=== PATIENT | female | born 1990 | race Two or more races ===

== ENCOUNTER 2018-08-25 08:44 | Emergency (ER) | payer OTHER ==
[2018-08-25 08:48] VITALS: BP 121/77; PULSE 87; TEMP 98.6; BMI 31.2
[2018-08-25] MEDS ORDERED: IBUPROFEN 400 MG TABLET (FP) PO ONE ×2 (09:22→09:26)
[2018-08-25] MEDS ORDERED: DEXAMETHASONE LIQUID 0.5 MG/5 ML 240 ML BULK BOTTLE PO ONE (09:22)
[2018-08-25] MEDS ORDERED: DEXAMETHASONE SOD PHOSPHATE 10 MG/1 ML VIAL ONE (09:26)
[2018-08-25] MEDS ORDERED: PENICILLIN G BENZATHINE 1,200,000 UNIT/2 ML PFS IM ONE (10:09)
[2018-08-25] MEDS ORDERED: PENICILLIN G BENZATHINE 2,400,000 UNIT/4 ML PFS ONE (10:22)
--- NOTE | 2018-08-25 10:34 | PDOC ---
History of Present Illness - General Chief Complaint: Sore Throat Stated Complaint: DIF BREATHING Time Seen by Provider: 08/25/18 09:15 History Source: Patient Exam Limitations: No Limitations Past History - Past Medical History Allergies/Adverse Reactions: Allergies Allergy/AdvReac Type Severity Reaction Status Date / Time No Known Allergies Allergy Verified 08/25/18 08:47 Home Medications: Ambulatory Orders NK [No Known Home Medication] 04/06/17 Asthma: Yes COPD: No - Suicide/Smoking/Psychosocial Hx Smoking History: Current some day smoker Number of Cigarettes Smoked Daily: 1 Information on smoking cessation initiated: No Hx Alcohol Use: Yes (OCCASIONALLY) Drug/Substance Use Hx: No *Physical Exam - Vital Signs Last Vital Signs Temp Pulse Resp BP Pulse Ox 98.6 F 87 18 121/77 99 08/25/18 08:46 08/25/18 08:46 08/25/18 08:46 08/25/18 08:46 08/25/18 08:46 - Physical Exam General Appearance: No: Apparent Distress HEENT: positive: TMs Normal, Pharyngeal Erythema, Tonsillar Exudate. negative: Muffled/Hoarse voice Respiratory/Chest: positive: Lungs Clear, Normal Breath Sounds. negative: Respiratory Distress Cardiovascular: positive: Regular Rhythm, Regular Rate, S1, S2. negative: Murmur Gastrointestinal/Abdominal: positive: Normal Bowel Sounds, Soft. negative: Tender, Distended, Guarding, Rebound Integumentary: positive: Normal Color. negative: Rash Neurologic: positive: Alert, Normal Mood/Affect Moderate Sedation - Procedure Monitoring Vital Signs: Procedure Monitoring Vital Signs Temperature 98.6 F 08/25/18 08:46 Pulse Rate 87 08/25/18 08:46 Respiratory Rate 18 08/25/18 08:46 Blood Pressure 121/77 08/25/18 08:46 O2 Sat by Pulse Oximetry (%) 99 08/25/18 08:46 ED Treatment Course - Medications Given in the ED: ED Medications Discontinued Medications Generic Name Dose Route Start Last Admin Trade Name Freq PRN Reason Stop Dose Admin Dexamethasone 10 mg 08/25/18 09:22 08/25/18 09:28 Decadron Liquid - PO 08/25/18 09:23 10 mg ONCE ONE Administration Ibuprofen 800 mg 08/25/18 09:22 08/25/18 09:29 Motrin - PO 08/25/18 09:23 800 mg ONCE ONE Administration Penicillin G Benzathine 1,200,000 unit 08/25/18 10:09 08/25/18 10:25 Bicillin L-A - IM 08/25/18 10:10 1,200,000 unit ONCE ONE Administration Medical Decision Making - Medical Decision Making 28 y/o F with no sig pmh presents with sore throat since yesterday and pain with swallowing. Mentions she has had a ?abscess last year, which was drained, and the pain similar to her prior throat infection. Mentions feeling hot but not checking temperature. Did not take any antipyretics recently. Denies cough, sob,cp, abd pain, n/v/d PE concerning for strep Rapid strep + Patient treated with IM Penicillin, Decadron and Motrin stable for dc 08/25/18 10:31 *DC/Admit/Observation/Transfer Diagnosis at time of Disposition: Strep pharyngitis - Discharge Dispostion Disposition: HOME Condition at time of disposition: Stable Decision to Admit order: No - Referrals - Patient Instructions Printed Discharge Instructions: DI for Strep Throat Additional Instructions: Thank you for choosing [facility]. It was a pleasure taking care of you. You were treated here for strep throat. You may take Motrin 600 mg every 6 hours by mouth as needed for mild to moderate pain. Take Motrin with food. You can also do salt water gargles Follow-up with your doctor in 2-3 days Return to the Emergency Department if your symptoms worsen or persist or have other concerning symptoms. - Post Discharge Activity Forms/Work/School Notes: Back to Work
== END 2018-08-25 10:36 | disposition home or self-care (01) ==
LOC: JERFT 08:44
DX: J02.0 Streptococcal pharyngitis (principal); B95.0 Streptococcus, group A, as the cause of diseases classified elsewhere
CPT/HCPCS: 87880; 96372; 99281-25